=== PATIENT | female | born 1990 | race Two or more races ===

== ENCOUNTER 2020-01-19 14:09 | Emergency (ER) | payer MEDICAID ==
[~2020-01-19] VITALS: Ht 175.3 cm; Wt 57.6 kg
[2020-01-19 14:13] VITALS: BP_SYST 137
--- NOTE | 2020-01-19 14:21 | NUR ---
Patient to ER bed 8 to gown for evaluation. Side rails up. Report given to ANNITA Cisneros.
--- NOTE | 2020-01-19 14:25 | NUR ---
ER at bedside examining patient.
--- NOTE | 2020-01-19 14:30 | NUR ---
PT REPORTS FEELING DIZZY FOR A FEW DAYS. RECENTLY HAD BLOOD CULTURES COME BACK WITH ABNORMAL RESULTS. WAS INSTRUCTED TO COME TO ER. RECENTY TRAVELED TO [place]. HX OF ANXIETY
[2020-01-19 15:07] LABS: HEMOGLOBIN 12.2 g/dL (12.0-16.0)
--- NOTE | 2020-01-19 15:12 | NUR ---
REPORT GIVEN TO JULIO CESAR Coleman RN FOR CONTINUATION OF CARE
[2020-01-19 15:15] LABS: BASOPHILS % (AUTO) 0.4 % (0.0-2.0); EOSINOPHILS % (AUTO) 0.7 % (0.0-4.0); LYMPHOCYTES # (AUTO) 1.4 K/uL (1.0-5.5); LYMPHOCYTES % (AUTO) 23.7 % (20.5-51.5); MEAN CORPUSCULAR HEMOGLOBIN 27 pg (27-31); MEAN CORPUSCULAR HGB CONC 32 % (32-36); MEAN CORPUSCULAR VOLUME 84 fL (79.0-98.0); MONOCYTES # (AUTO) 0.3 K/uL (0.0-1.0); MONOCYTES % (AUTO) 4.6 % (1.7-9.3); NEUTROPHILS # (AUTO) 4.2 K/uL (1.8-7.7); NEUTROPHILS % (AUTO) 70.6 % (40.0-70.0); PLATELET COUNT (AUTO) 202 K/uL (130-430); RED BLOOD CELL COUNT(AUTO) 4.51 MIL/uL (4.2-6.2); RED CELL DISTRIBUTION WIDTH 14.8 % (9.0-15.0)
--- NOTE | 2020-01-19 15:25 | NUR ---
YANELY TO ASSUME CARE, PT CALM, ALERT. RESP UNLABORED, SKIN WARM AND DRY. COMMUNICATES CLEARLY IN FULL COMPLETE SENTENCES.
--- NOTE | 2020-01-19 15:49 | NUR ---
DR STEVENSON AT BEDSIDE
--- NOTE | 2020-01-19 15:55 | NUR ---
Patient given written and verbal discharge instructions and verbalizes understanding. ER MD discussed with patient the results and treatment provided. Patient in stable condition. ID arm band removed. Patient educated on pain management and to follow up with PMD. Pain Scale . Opportunity for questions provided and answered. Medication side effect fact sheet provided.
[2020-01-19 16:05] VITALS: BP_SYST 120
== END 2020-01-19 15:56 | disposition home or self-care (01) ==
LOC: SED 14:09
DX: R50.9 Fever, unspecified (principal); R19.7 Diarrhea, unspecified; M79.18 Myalgia, other site
CPT/HCPCS: 36415; 84443-TC; 85025; 87040-TC; 99283